=== PATIENT | male | born 1960 | race Caucasian/White ===

== ENCOUNTER 2022-10-27 09:31 | Emergency (ER) | payer OTHER ==
[~2022-10-27] VITALS: Ht 182.9 cm; Wt 113.4 kg
[2022-10-27 10:04] VITALS: BP_SYST 121
--- NOTE | 2022-10-27 10:10 | NUR ---
Patient to ER bed 6 to gown for evaluation. Side rails up. Report given to NISREEN ALVAREZ.
--- NOTE | 2022-10-27 10:11 | NUR ---
Pt came in from home c/o nose and forehead pain r/t fall off of ladder last night at 2100. Pt denies LOC, states nose bled for several minutes. Pt has headache and wants to make sure he didn't cause any serious damage to bone structure. Has hx of diabetes and HTN. Denies alcohol or drug use. Pt appears in no acute distress at this time. Care to be provided as ordered.
--- NOTE | 2022-10-27 10:12 | NUR ---
ER at bedside examining patient.
[2022-10-27] MEDS ORDERED: IBUPROFEN 800 MG TABLET PO ONE (10:15)
--- NOTE | 2022-10-27 10:32 | NUR ---
Pt was taken by wheelchair to radiology for CT scan. Pt was returned without completing imaging stating he is concerned about how his bill. notified.
--- NOTE | 2022-10-27 10:40 | NUR ---
Went to discuss plan of care and pt was no longer in exam room. MD and charge nurse notified.
--- NOTE | 2022-10-27 10:49 | NUR ---
Patient does not wish to proceed with medical care recommended by Dr. Donny MD. Patient given information related to possible complications, up to and including , which could occur as a result of leaving hospital at this time. Patient eloped without signing AMA form.
== END 2022-10-27 10:49 | disposition left against medical advice (07) ==
LOC: SED 09:31
DX: S01.21XA Laceration without foreign body of nose, initial encounter (principal); S19.9XXA Unspecified injury of neck, initial encounter; S09.90XA Unspecified injury of head, initial encounter; W18.39XA Other fall on same level, initial encounter; Y93.89 Activity, other specified; Y92.89 Other specified places as the place of occurrence of the external cause; Y99.8 Other external cause status
CPT/HCPCS: 99281